=== PATIENT | male | born 2000 | race African-American/Black ===

== ENCOUNTER 2023-02-24 15:40 | Emergency (ER) | payer SELFPAY ==
[~2023-02-24] VITALS: Ht 172.7 cm; Wt 64.4 kg
[2023-02-24] MEDS ORDERED: CYCLOBENZAPRINE5 MG PO (16:18)
[2023-02-24] MEDS ORDERED: MELOXICAM15 MG PO (16:18)
== END 2023-02-24 16:22 | disposition home or self-care (01) ==
LOC: FSED 15:45
DX: R07.89 Other chest pain (principal)
CPT/HCPCS: 71045; 81003; 99283